=== PATIENT | male | born 1990 | race Hispanic/Latino ===

== ENCOUNTER 2018-06-09 21:07 | Emergency (ER) | payer BC ==
[2018-06-09 21:14] VITALS: BP 159/89; PULSE 89; RESP 16; TEMP 98.1; O2SAT 99
--- NOTE | 2018-06-09 21:49 | ED PDOC ---
HPI: Male Pain Time Seen by Provider: 06/09/18 21:18 Chief Complaint (Nursing): Male Genitourinary Chief Complaint (Provider): penile eval History Per: Patient History/Exam Limitations: no limitations Onset/Duration Of Symptoms: Hrs (1) Current Symptoms Are (Timing): Gone Now Additional Complaint(s): 27 y/o male presents for evaluation of possible penile injury sustained 1 hour prior to arrival. Patient states he was masturbating and heard a "click" noise. Patient states he then looked up possible causes on the internet and saw he could have possibly fracture his penis. Patient denies fever, nausea/ vomiting, abdominal pain, penile pain/swelling/bruising, testicular pain/ swelling, penile discharge, difficulty urinating. Past Medical History Reviewed: Historical Data, Nursing Documentation, Vital Signs Vital Signs: Last Vital Signs Temp 98.1 F 06/09/18 21:12 Pulse 89 06/09/18 21:12 Resp 16 06/09/18 21:12 BP 159/89 H 06/09/18 21:12 Pulse Ox 99 06/09/18 21:12 - Medical History PMH: No Chronic Diseases - Surgical History Surgical History: No Surg Hx - Family History Family History: States: No Known Family Hx - Living Arrangements Living Arrangements: With Family - Allergies Allergies/Adverse Reactions: Allergies Allergy/AdvReac Type Severity Reaction Status Date / Time No Known Allergies Allergy Verified 06/09/18 21:12 Review of Systems ROS Statement: Except As Marked, All Systems Reviewed And Found Negative Genitourinary Male: Positive for: Other (penile eval) Physical Exam - Reviewed Nursing Documentation Reviewed: Yes Vital Signs Reviewed: Yes - Physical Exam Appears: Positive for: Well, Non-toxic, No Acute Distress Head Exam: Positive for: ATRAUMATIC, NORMAL INSPECTION, NORMOCEPHALIC Skin: Positive for: Normal Color Eye Exam: Positive for: Normal appearance ENT: Positive for: Normal ENT Inspection Cardiovascular/Chest: Positive for: Regular Rate, Rhythm Respiratory: Positive for: Normal Breath Sounds Gastrointestinal/Abdominal: Positive for: Normal Exam Male Genital Exam: Positive for: normal genitalia, other (no penile swelling, ecchymosis, tenderness. 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 Negative for: inguinal tenderness, scrotum tenderness (R), scrotum tenderness (L), testicular tenderness (R), testicular tenderness (L), urethral discharge Back: Positive for: Normal Inspection Extremity: Positive for: Normal ROM Neurologic/Psych: Positive for: Alert, Oriented (x3) - Laboratory Results Urine dip results: Negative for: Leukocyte Esterase, Blood, Nitrate, Ketones - ECG O2 Sat by Pulse Oximetry: 99 - Progress ED Course And Treament: udip Patient educated on findings, discharged with instructions to follow up PMD 2-3 days Return precautions given Disposition - Clinical Impression Clinical Impression: Normal exam - Patient ED Disposition Is Patient to be Admitted: No Counseled Patient/Family Regarding: Studies Performed, Diagnosis, Need For Followup - Disposition Referrals: [facility] [Outside] Disposition: Routine/Home Disposition Time: 22:13 Condition: GOOD Instructions: General (DC)
== END 2018-06-09 22:35 | disposition home or self-care (01) ==
LOC: H.ER 21:07
DX: Z00.00 Encounter for general adult medical examination without abnormal findings (principal); Z71.1 Person with feared health complaint in whom no diagnosis is made